=== PATIENT | female | born 1975 | race Caucasian/White ===

== ENCOUNTER 2017-05-06 18:20 | Emergency (ER) | payer BC ==
[~2017-05-06 18:20] MED LIST: Sodium Chloride 0.9% 1,000 ML BAG ONE; Sodium Chloride 0.9% 100 ML BAG ONE
[2017-05-06] MEDS ORDERED: Ondansetron HCl/PF 4 MG/2 ML Vial ONE (18:54)
[2017-05-06] MEDS ORDERED: Promethazine HCl 25 MG/ML VIAL ONE (19:35)
== END 2017-05-06 20:03 | disposition home or self-care (01) ==
LOC: MADERS 18:20
DX: A09 Infectious gastroenteritis and colitis, unspecified (principal)
CPT/HCPCS: 96361; 96365; 96375; J2405; J2550; J7050

== ENCOUNTER 2017-10-12 13:15 | Emergency (ER) | payer BC ==
[2017-10-12] MEDS ORDERED: Diphenoxylate HCl/Atropine Tablet ONE (14:21)
[2017-10-12] MEDS ORDERED: Sodium Chloride 0.9% 1,000 ML BAG ONE (14:21)
[2017-10-12] MEDS ORDERED: Ondansetron ODT 4 MG TAB ONE (14:21)
[2017-10-12] MEDS ORDERED: Ketorolac Tromethamine 30 MG/ML VIAL ONE (14:21)
== END 2017-10-12 16:26 | disposition home or self-care (01) ==
LOC: MADERS 13:15
DX: B34.9 Viral infection, unspecified (principal)
CPT/HCPCS: 96361; 96374; J1885; J7050; Q0162

== ENCOUNTER 2019-03-30 20:51 | Emergency (ER) | payer BC ==
[2019-03-30 21:17] LABS: Bilirubin Small (Negative); Blood, Urine Small (Negative); Clarity Clear (Clear); Glucose, Urine (Dipstick) Negative (Negative); Leukocyte Negative (Negative); Nitrite Negative (Negative); Protein, Urine (Dipstick) 100 mg/dL (Neg-Trace)
[2019-03-30 21:18] LABS: Pregnancy Test - Urine (BHCG) Negative (Negative)
[2019-03-30 21:19] LABS: Pregu Control Background? CLEAR/WHITE (CLR/WHITE); Pregu Control Bar Appear? YES (CONTROL BAR); Specific Gravity 1.025 (1.002-1.036)
[2019-03-30 21:23] LABS: Bacteria/HPF Rare-Few HPF (None Seen); WBC/HPF 0-3 HPF (0-3)
[2019-03-30] MEDS ORDERED: Ondansetron ODT 4 MG TAB ONE (21:34)
[2019-03-30] MEDS ORDERED: HYDROmorphone 0.5 MG/0.5 ML SYRINGE ONE (21:34)
[2019-03-30 21:50] LABS: #Basophils 0.1 thou/uL (0.0-0.2); #Eosinphils 0.1 thou/uL (0.0-0.7); #Lymphocytes 2.3 thou/uL (1.20-3.40); #Monocytes 0.5 thou/uL (0.11-0.59); #Neutrophils 5.2 thou/uL (1.40-6.50); %Basophils 0.7 % (0.0-1.0); %Eosinophils 0.9 % (0.0-10.0); %Lymphocytes 28.5 % (21.0-51.0); %Monocytes 6.2 % (0.0-10.0); %Neutrophils 63.7 % (42.0-75.0); Hemoglobin 13.4 g/dL (12.0-16.0); Mean Corpuscular HGB CONC 31.3 g/dL (32.0-36.0); Mean Corpuscular Hemoglobin 27.6 pg (27.0-31.0); Mean Corpuscular Volume 88.4 fL (78.0-98.0); Mean Platelet Volume 6.4 fL (7.4-10.4); Platelet Count 217 thou/uL (130-400); RBC Distribution Width 13.4 % (11.5-14.5); Red Blood Cell (RBC) Count 4.85 mill/uL (4.20-5.40); White Blood Cell (WBC) Count 8.2 thou/uL (4.8-10.8)
--- NOTE | 2019-03-30 21:58 | CT ---
CT OF THE ABDOMEN AND PELVIS WITHOUT IV CONTRAST INDICATION: Left-sided flank pain with vomiting and diarrhea COMPARISON: None FINDINGS: This examination is limited for the evaluation of solid organs and vascular structures due to the lac k of intravenous contrast. ABDOMEN: Lung bases: Clear Liver: There is a 7 mm hypodensity within the right hepatic lobe, too small to characterize. Gallbladder: Normal appearing. Pancreas: Normal. Adrenal glands: Normal. Spleen: Normal. 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 There is slight prominence of the left renal collec ting system. There is a 1.5 mm stone just past the left UVJ. No definite right-sided ureteral calculus is evident. There are numerous phleboliths seen within the lower pelvis. Vasculature: Normal. Lymph nodes:No lymphadenopathy. Free fluid in abdomen:No free fluid is evident. PELVIS: Small and large bowel: Normal Appendix:Normal Bladder: Normal. Rectal and perirectal soft tissues:Normal. Reproductive structures: There is a 2.5 cm follicular cyst within the right ovary. Free fluid in pelvis: Mild Lymphadenopathy pelvis: No lymphadenopathy is evident. Osseous structures: No acute osseous abnormality. No destructive osteolytic or osteoblastic lesion i s identified. Soft tissues:Normal. IMPRESSION: 1. Findings suspicious for recently passed stone from the left renal collecting system. There is mild residual left-sided hydronephrosis. There is a 1.5 mm stone just past the left UVJ within the left aspect of the bladder. 2. Tiny right hepatic lobe hypodensity difficult to characterize due to its size. 3. Right ovarian follicular cyst
[2019-03-30 22:05] LABS: ALT (SGPT) 13 U/L (8-55); AST (SGOT) 15 U/L (5-34); Albumin 4.2 g/dL (3.5-5.0); Alkaline Phosphatase 78 U/L (40-110); Anion Gap 15 mmol/L (10-20); BUN (Urea Nitrogen) 14 mg/dL (7.0-18.7); Bilirubin, Total 0.6 mg/dL (0.2-1.2); Calc. Creatinine Clearance 0 mL/min (70-130); Calcium 9.5 mg/dL (7.8-10.44); Carbon Dioxide 25 mmol/L (22-29); Chloride 104 mmol/L (98-107); Estimated GFR-MDRD 78; Glucose 128 mg/dL (70-105); Lipase 37 U/L (8-78); Protein, Total 6.2 g/dL (6.0-8.3); Sodium 140 mmol/L (136-145)
[2019-03-30] MEDS ORDERED: Ketorolac Tromethamine 60 MG/2 ML VIAL ONE (22:25)
== END 2019-03-30 22:50 | disposition home or self-care (01) ==
LOC: MADERS 20:51
DX: N13.2 Hydronephrosis with renal and ureteral calculous obstruction (principal); E78.00 Pure hypercholesterolemia, unspecified; E78.5 Hyperlipidemia, unspecified; F32.9 Major depressive disorder, single episode, unspecified; Z79.899 Other long term (current) drug therapy
CPT/HCPCS: 74176; 80053; 81003; 81015; 81025; 83690; 85025; 96372; J1170; J1885; Q0162